=== PATIENT | female | born 1995 ===

== ENCOUNTER 2016-08-29 14:22 | Emergency (ER) | payer MEDICAID ==
[2016-08-29 14:22] VITALS: BMI 21.5
[2016-08-29 14:38] VITALS: BP 117/85; PULSE 95; RESP 18; TEMP 97.9; O2SAT 99
[2016-08-29 15:10] LABS: HCG,QUALITATIVE URINE NEGATIVE (NEGATIVE)
[2016-08-29 15:24] LABS: SQUAMOUS EPITHIAL 4 /hpf (0-5); URINE BILIRUBIN NEGATIVE (NEGATIVE); URINE BLOOD 3+ (NEGATIVE); URINE CLARITY Hazy (Clear); URINE COLOR Yellow (YELLOW); URINE GLUCOSE (UA) NORMAL (Normal); URINE LEUKOCYTE ESTERASE TRACE Leu/uL (Negative); URINE NITRATE NEGATIVE (NEGATIVE); URINE PROTEIN 2+ mg/dL (NEGATIVE)
--- NOTE | 2016-08-29 15:40 | C.PDOC ---
History Of Present Illness 21 y/o female presents to the ED with complaints of headache and lower abdominal cramping. LMP lasted 12 days which isn't typical for her, and then had another 3 days of light bleeding afterward. Pt is sexually active, doesn't use protection. Pt also reports breast discomfort and swelling, nausea and vomiting with eating. History of with miscarriage at 8 weeks. Denies fever, chills, diarrhea, dysuria or any other complaints. Time Seen by Provider: 08/29/16 14:43 Chief Complaint (Nursing): Female Genitourinary History Per: Patient History/Exam Limitations: no limitations Onset/Duration Of Symptoms: Days Current Symptoms Are (Timing): Still Present Severity: Moderate Recent travel outside of the [place]: No Past Medical History Reviewed: Historical Data, Nursing Documentation, Vital Signs Vital Signs: Last Vital Signs Temp 97.9 F 08/29/16 14:35 Pulse 95 H 08/29/16 14:35 Resp 18 08/29/16 14:35 BP 117/85 08/29/16 14:35 Pulse Ox 99 08/29/16 15:42 Surgical History: Appendectomy Family History: States: Unknown Family Hx - Social History Hx Alcohol Use: Yes Hx Substance Use: No - Immunization History Hx Tetanus Toxoid Vaccination: No Hx Influenza Vaccination: No Hx Pneumococcal Vaccination: No Review Of Systems Except As Marked, All Systems Reviewed And Found Negative. Constitutional: Positive for: Other (breast discomfort and swelling). Negative for: Fever, Chills Gastrointestinal: Positive for: Nausea, Vomiting, Abdominal Pain. Negative for : Diarrhea Genitourinary: Negative for: Dysuria Physical Exam - Physical Exam Appears: Well, Non-toxic, No Acute Distress, Other (conversational) Skin: Warm (afebrile), Dry, No Rash Head: Atraumatic, Normacephalic Ear(s): Bilateral: Normal Nose: Normal Oral Mucosa: Moist Throat: Normal, No Erythema Neck: Normal, Normal ROM, Supple Chest: Symmetrical Cardiovascular: Rhythm Regular, No Murmur Respiratory: Normal Breath Sounds, No Rales, No Rhonchi, No Wheezing Gastrointestinal/Abdominal: Normal Exam, Soft, No Tenderness Extremity: Bilateral: Atraumatic Neurological/Psych: Oriented x3, Normal Speech, Normal Cognition ED Course And Treatment O2 Sat by Pulse Oximetry: 99 (room air) Pulse Ox Interpretation: Normal Progress Note: Urine negative for . Disposition Counseled Patient/Family Regarding: Need For Followup, Rx Given - Disposition Referrals: [facility] at [facility] [Outside] Disposition: HOME/ ROUTINE Disposition Time: 15:37 Condition: STABLE Additional Instructions: Siga con willson doctor o la clinica. [place] Motrin para el dolor de jay. Regrese a la yaneth de emergencia con cualquier otro problema. Prescriptions: Ibuprofen [Motrin] 1 tab PO TID PRN #30 tab PRN Reason: Pain Instructions: Premenstrual Syndrome (ED) Forms: Gen Discharge Inst Hungarian - POA Present On Arrival: None - Clinical Impression Clinical Impression: PMS (premenstrual syndrome) - Scribe Statement The provider has reviewed the documentation as recorded by the Scribsolis Vance Provider Attestation: All medical record entries made by the Scribe were at my direction and personally dictated by me. I have reviewed the chart and agree that the record accurately reflects my personal performance of the history, physical exam, medical decision making, and the department course for this patient. I have also personally directed, reviewed, and agree with the discharge instructions and disposition.
== END 2016-08-29 15:59 | disposition home or self-care (01) ==
LOC: C.ER 14:22
DX: N94.3 Premenstrual tension syndrome (principal)

== ENCOUNTER 2016-08-30 12:21 | Emergency (ER) | payer MEDICAID ==
[2016-08-30 12:26] VITALS: BMI 21.9
[2016-08-30 12:27] VITALS: RESP 20
--- NOTE | 2016-08-30 12:44 | C.PDOC ---
History Of Present Illness 21 year old female who presents to the ER with a complaint of a prolonged menstrual period; associated with nausea, vomiting, headache, and abdominal pain. Patient states her menstrual period has be ongoing for 12 days which is abnormal for her; she report it usually last 4-5 days for her. Denies dysuria, pelvic pain, or fever. Time Seen by Provider: 08/30/16 12:42 Chief Complaint (Nursing): Abdominal Pain History Per: Patient History/Exam Limitations: no limitations Onset/Duration Of Symptoms: Days (12) Current Symptoms Are (Timing): Still Present Location Of Pain/Discomfort: Diffuse Radiation Of Pain To:: None Quality Of Discomfort: Unable To Describe Associated Symptoms: Nausea, Vomiting. denies: Fever, Urinary Symptoms Exacerbating Factors: None Alleviating Factors: None Recent travel outside of the [place]: No Abnormal Vaginal Bleeding: Yes Past Medical History Reviewed: Historical Data, Nursing Documentation, Vital Signs Vital Signs: Last Vital Signs Temp 98.3 F 08/30/16 12:26 Pulse 77 08/30/16 12:26 Resp 20 08/30/16 12:26 BP 109/71 08/30/16 12:26 Pulse Ox 99 08/30/16 13:54 - Medical History PMH: No Chronic Diseases Surgical History: Appendectomy Family History: States: Unknown Family Hx - Social History Hx Alcohol Use: Yes Hx Substance Use: No - Immunization History Hx Tetanus Toxoid Vaccination: No Hx Influenza Vaccination: No Hx Pneumococcal Vaccination: No Review Of Systems Constitutional: Negative for: Fever, Chills Cardiovascular: Negative for: Chest Pain Respiratory: Negative for: Cough, Shortness of Breath Gastrointestinal: Positive for: Nausea, Vomiting, Abdominal Pain. Negative for : Diarrhea Genitourinary: Positive for: Vaginal Bleeding. Negative for: Dysuria Neurological: Negative for: Weakness, Numbness Physical Exam - Physical Exam Appears: Non-toxic, No Acute Distress Skin: Normal Color, Warm, Dry Head: Atraumatic, Normacephalic Oral Mucosa: Moist, No Dry Chest: Symmetrical, No Tenderness Cardiovascular: Rhythm Regular, No Murmur Respiratory: Normal Breath Sounds, No Rales, No Rhonchi, No Wheezing Gastrointestinal/Abdominal: Soft, No Tenderness Neurological/Psych: Oriented x3, Normal Speech, Normal Cognition ED Course And Treatment - Laboratory Results Result Diagrams: 08/30/16 14:18 08/30/16 14:18 O2 Sat by Pulse Oximetry: 99 (Room air) Pulse Ox Interpretation: Normal Progress Note: Blood work ordered. Motrin administered. Medical Decision Making Medical Decision Making: pt resting quietly, appears comfortable, no distress, VSS, Hb wnl. follow up and return prec advised Disposition - Disposition Referrals: [facility] at [facility] [Outside] Disposition: HOME/ ROUTINE Disposition Time: 14:41 Condition: GOOD Additional Instructions: Please follow up with your OBGYN doctor. Return to the ER if you go through more than 2 pads an hour for 2 hours, passing out, trouble breathing, chest pain , or for any other concerns. Prescriptions: Ibuprofen [Motrin Tab] 800 mg PO Q8H PRN #10 tab PRN Reason: Pain, Moderate (4-7) Ondansetron ODT [Zofran ODT] 4 mg PO Q4H PRN #10 odt PRN Reason: Nausea/Vomiting Instructions: Dysfunctional Uterine Bleeding (ED) Forms: Gen Discharge Inst Kazakh Print Language: FRISIAN - Clinical Impression Clinical Impression: Dysfunctional uterine bleeding - Scribe Statement The provider has reviewed the documentation as recorded by the Scribsolis Hudson All medical record entries made by the Scribe were at my direction and personally dictated by me. I have reviewed the chart and agree that the record accurately reflects my personal performance of the history, physical exam, medical decision making, and the department course for this patient. I have also personally directed, reviewed, and agree with the discharge instructions and disposition.
[2016-08-30 13:25] LABS: HCG,QUALITATIVE URINE NEGATIVE (NEGATIVE)
[2016-08-30 13:34] LABS: SQUAMOUS EPITHIAL 4 /hpf (0-5); URINE BACTERIA RARE (<OCC); URINE BILIRUBIN NEGATIVE (NEGATIVE); URINE BLOOD 3+ (NEGATIVE); URINE CLARITY Clear (Clear); URINE COLOR Yellow (YELLOW); URINE GLUCOSE (UA) NORMAL (Normal); URINE LEUKOCYTE ESTERASE NEG Leu/uL (Negative); URINE NITRATE NEGATIVE (NEGATIVE); URINE PROTEIN NEGATIVE (NEGATIVE); URINE UROBILINOGEN NORMAL mg/dL (0.2-1.0)
[2016-08-30 14:23] LABS: BASO # 0.1 K/uL (0.0-0.2); EOS % 0.4 % (0.0-4.0); HEMOGLOBIN 13.3 g/dL (11.0-16.0); LYMPH # 1.6 K/uL (1.0-4.3); LYMPH % 21.6 % (20.0-40.0); MEAN CELL VOLUME 93.1 fL (81.0-99.0); MEAN CORPUSCULAR HEMOGLOBIN 31.1 pg (27.0-31.0); MEAN CORPUSCULAR HGB CONC 33.4 g/dL (33.0-37.0); MEAN PLATELET VOLUME 7.7 fL (7.2-11.7); MONO # 0.5 K/uL (0.0-0.8); MONO % 6.9 % (0.0-10.0); NEUT # 5.1 K/uL (1.8-7.0); NEUT % 70.1 % (50.0-75.0); RBC 4.28 Mil/uL (3.80-5.20); RED CELL DISTRIBUTION WIDTH 14.1 % (11.5-14.5); WHITE BLOOD COUNT 7.2 K/uL (4.8-10.8)
[2016-08-30 14:32] LABS: ALBUMIN 4.1 g/dL (3.5-5.0)
[2016-08-30 14:34] LABS: GFR AFRICAN-AMERICAN > 60; GFR NON-AFRICAN AMERICAN > 60
[2016-08-30 14:35] LABS: ALB/GLOB RATIO 1.1 (1.0-2.1); ALT/SGPT 17 U/L (9-52); AST/SGOT 31 U/L (14-36); BLOOD UREA NITROGEN 8 mg/dL (7-17); CALCIUM 8.8 mg/dl (8.6-10.4)
[2016-08-30 15:05] VITALS: BP 118/70; PULSE 83; TEMP 98.7; O2SAT 100
== END 2016-08-30 15:05 | disposition home or self-care (01) ==
LOC: C.ER 12:21
DX: N93.8 Other specified abnormal uterine and vaginal bleeding (principal)

== ENCOUNTER 2016-12-16 13:25 | Emergency (ER) | payer MEDICAID, OTHER ==
[2016-12-16 13:33] VITALS: BMI 21.7
[2016-12-16 13:35] VITALS: BP 113/79; PULSE 100; RESP 18; TEMP 98.5; O2SAT 100
--- NOTE | 2016-12-16 13:49 | C.PDOC ---
History Of Present Illness 21 year old female presents to the ED for evaluation of progressively worsening cough for past 2 weeks. Patient reports that cough now productive with green sputum. She also complains of subjective fever last night. She denies sore throat, ear pain, or chest pain. Time Seen by Provider: 12/16/16 13:40 Chief Complaint (Nursing): Cough, Cold, Congestion History Per: Patient History/Exam Limitations: no limitations Onset/Duration Of Symptoms: Days Current Symptoms Are (Timing): Worse Associated Symptoms: Fever (subjective), Cough, Sputum Ear Symptoms: Bilateral: None Past Medical History Reviewed: Historical Data, Nursing Documentation, Vital Signs Vital Signs: Last Vital Signs Temp 98.5 F 12/16/16 13:32 Pulse 100 H 12/16/16 13:32 Resp 18 12/16/16 13:32 BP 113/79 12/16/16 13:32 Pulse Ox 100 12/16/16 16:22 - Medical History PMH: Denies: Chronic Kidney Disease Surgical History: Appendectomy Family History: States: Unknown Family Hx - Social History Hx Alcohol Use: No Hx Substance Use: No - Immunization History Hx Tetanus Toxoid Vaccination: No Hx Influenza Vaccination: No Hx Pneumococcal Vaccination: No Review Of Systems Constitutional: Positive for: Fever (subjective) ENT: Negative for: Ear Pain, Throat Pain Cardiovascular: Negative for: Chest Pain Respiratory: Positive for: Cough, Sputum Physical Exam - Physical Exam Appears: Non-toxic, No Acute Distress Skin: Normal Color, Warm, Dry Head: Atraumatic, Normacephalic Eye(s): bilateral: Normal Inspection, EOMI Nose: Normal Oral Mucosa: Moist Throat: Normal Neck: Normal ROM Chest: Symmetrical Cardiovascular: Rhythm Regular (Rate Regular ) Respiratory: Normal Breath Sounds, No Rales, No Rhonchi, No Wheezing Extremity: Bilateral: Atraumatic, Normal Color And Temperature, Normal ROM Neurological/Psych: Oriented x3, Normal Speech Gait: Steady ED Course And Treatment O2 Sat by Pulse Oximetry: 100 (room air) Pulse Ox Interpretation: Normal Medical Decision Making Medical Decision Making: Impression: cough and URI Plan: Zithromax Reassess: patient remained afebrile in no distress. lungs clear bilaterally with good air entry. Rx given and advise follow up with PCP. Disposition Counseled Patient/Family Regarding: Diagnosis, Need For Followup, Rx Given - Disposition Referrals: [facility] at [facility] [Outside] Disposition: HOME/ ROUTINE Disposition Time: 13:46 Condition: STABLE Additional Instructions: [place] Tylenol o Motrin alternando cada 4-6 horas para Fever 100.4F o superior. Descansa y lynn muchos lquidos. Puede usar un humidificador de vapor fresco o un vaporizador en la habitacin. Intente lucy el antihistamnico contador ( Claritin, Brianna, Zyrtec), descongestionante o medicamento para la tos segn sea necesario cada 8 horas. Lobito un seguimiento con willson mdico o clnica principal en 1 semana para ranulfo evaluacin ms detallada. Prescriptions: Albuterol HFA [Ventolin HFA 90 mcg/actuation (8 g)] 1 puff IH Q4 #1 puff Azithromycin [Zithromax] 250 mg PO DAILY #4 tab Promethazine DM [Phenergan DM Syrup] 10 ml PO Q8 PRN #300 ml PRN Reason: Cough Instructions: Upper Respiratory Infection (ED) Forms: [employer] (P[place]ua [place]inean) Print Language: SENEGALESE - POA Present On Arrival: None - Clinical Impression Clinical Impression: Upper respiratory infection - Scribe Statement The provider has reviewed the documentation as recorded by the Scribe Gennaro Lerma
== END 2016-12-16 14:15 | disposition home or self-care (01) ==
LOC: C.ER 13:25
DX: J06.9 Acute upper respiratory infection, unspecified (principal)

== ENCOUNTER 2017-04-13 00:08 | Emergency (ER) | payer MEDICAID, OTHER ==
[2017-04-13 00:08] VITALS: BMI 21.7
[2017-04-13 00:19] VITALS: O2SAT 98
--- NOTE | 2017-04-13 00:46 | C.PDOC ---
History Of Present Illness The patient presents to the ED for evaluation of abdominal pain, nausea and vomiting which began after she ate a sandwich earlier today. Patient reports decreased PO intake. She states her LMP was on 03/14. Patient denies fever, chills, and diarrhea. Time Seen by Provider: 04/13/17 00:45 Chief Complaint (Nursing): Abdominal Pain History Per: Patient History/Exam Limitations: no limitations Onset/Duration Of Symptoms: Hrs Current Symptoms Are (Timing): Still Present Context: Food Severity: Mild Pain Scale Rating Of: 2 Location Of Pain/Discomfort: Epigastric (mid ) Radiation Of Pain To:: None Quality Of Discomfort: "Pain" Associated Symptoms: Nausea, Vomiting. denies: Fever, Chills, Diarrhea Exacerbating Factors: None Alleviating Factors: None Last Bowel Movement: Today Recent travel outside of the [place]: No Additional History Per: Patient Abnormal Vaginal Bleeding: No Past Medical History Reviewed: Historical Data, Nursing Documentation, Vital Signs Vital Signs: Last Vital Signs Temp 99.4 F 04/13/17 00:16 Pulse 101 H 04/13/17 00:16 Resp 16 04/13/17 00:16 BP 117/81 04/13/17 00:16 Pulse Ox 98 04/13/17 01:46 - Medical History PMH: No Chronic Diseases Denies: Chronic Kidney Disease Surgical History: Appendectomy Family History: States: Unknown Family Hx - Social History Hx Alcohol Use: No Hx Substance Use: No - Immunization History Hx Tetanus Toxoid Vaccination: No Hx Influenza Vaccination: No Hx Pneumococcal Vaccination: No Review Of Systems Constitutional: Negative for: Fever, Chills Cardiovascular: Negative for: Chest Pain, Palpitations Respiratory: Negative for: Cough, Shortness of Breath Gastrointestinal: Positive for: Nausea, Vomiting, Abdominal Pain (mid- epigastric ). Negative for: Diarrhea Genitourinary: Negative for: Dysuria, Frequency, Hematuria Skin: Negative for: Rash, Lesions, Jaundice, Bruising Physical Exam - Physical Exam Appears: Non-toxic, No Acute Distress Skin: Warm, Dry Head: Normacephalic Eye(s): bilateral: Normal Inspection Oral Mucosa: Moist Neck: Supple Chest: Symmetrical, No Deformity, No Tenderness Cardiovascular: Rhythm Regular, No Murmur Respiratory: No Rales, No Rhonchi, No Wheezing Gastrointestinal/Abdominal: Soft, Tenderness (mild, mid-epigastric ), No Guarding, No Rebound Extremity: Normal ROM, Capillary Refill (less than 2 seconds ) Neurological/Psych: Oriented x3 Gait: Steady ED Course And Treatment - Laboratory Results Result Diagrams: 04/13/17 02:51 04/13/17 02:51 O2 Sat by Pulse Oximetry: 98 (on RA ) Pulse Ox Interpretation: Normal Progress Note: Urinalysis ordered and reviewed. Reevaluation Time: 03:41 Reassessment Condition: Improved Disposition Counseled Patient/Family Regarding: Studies Performed, Diagnosis, Need For Followup, Rx Given - Disposition Referrals: [facility] [Outside] Disposition: HOME/ ROUTINE Disposition Time: 00:46 Condition: FAIR Prescriptions: Ondansetron ODT [Zofran ODT] 1 odt PO BID PRN #6 odt PRN Reason: Nausea/Vomiting Instructions: Abdominal Pain (ED), Acute Nausea and Vomiting (ED) Forms: [employer] (Namibian) Print Language: AZERI - Clinical Impression Clinical Impression: Abdominal pain, Nausea - Scribe Statement The provider has reviewed the documentation as recorded by the Scribe (Kinza Walton) Provider Attestation: All medical record entries made by the Scribe were at my direction and personally dictated by me. I have reviewed the chart and agree that the record accurately reflects my personal performance of the history, physical exam, medical decision making, and the department course for this patient. I have also personally directed, reviewed, and agree with the discharge instructions and disposition.
[2017-04-13 02:02] LABS: SQUAMOUS EPITHIAL 3 /hpf (0-5); URINE BILIRUBIN NEGATIVE (NEGATIVE); URINE CLARITY Hazy (Clear); URINE COLOR Yellow (YELLOW); URINE GLUCOSE (UA) NORMAL (Normal); URINE LEUKOCYTE ESTERASE NEG Leu/uL (Negative); URINE NITRATE NEGATIVE (NEGATIVE); URINE PROTEIN 1+ mg/dL (NEGATIVE); URINE UROBILINOGEN NORMAL mg/dL (0.2-1.0)
[2017-04-13 02:12] LABS: URINE BLOOD NEGATIVE (NEGATIVE)
[2017-04-13 02:20] LABS: HCG,QUALITATIVE URINE NEGATIVE (NEGATIVE)
[2017-04-13] MEDS ORDERED: Sodium Chloride 0.9% 1,000 ML IV ONE (02:27)
[2017-04-13 02:55] LABS: BASO % 0.2 % (0.0-2.0); EOS # 0.1 K/uL (0.0-0.7); EOS % 0.5 % (0.0-4.0); HEMOGLOBIN 15.3 g/dL (11.0-16.0); LYMPH # 0.9 K/uL (1.0-4.3); LYMPH % 7.5 % (20.0-40.0); MEAN CELL VOLUME 94.4 fL (81.0-99.0); MEAN CORPUSCULAR HEMOGLOBIN 32.6 pg (27.0-31.0); MEAN CORPUSCULAR HGB CONC 34.6 g/dL (33.0-37.0); MEAN PLATELET VOLUME 7.9 fL (7.2-11.7); MONO # 0.9 K/uL (0.0-0.8); NEUT # 10.5 K/uL (1.8-7.0); NEUT % 84.8 % (50.0-75.0); PLATELET COUNT 290 K/uL (130-400); RBC 4.68 Mil/uL (3.80-5.20); RED CELL DISTRIBUTION WIDTH 12.9 % (11.5-14.5); WHITE BLOOD COUNT 12.4 K/uL (4.8-10.8)
[2017-04-13 03:07] LABS: ALB/GLOB RATIO 1.3 (1.0-2.1); ALBUMIN 4.5 g/dL (3.5-5.0); ALT/SGPT 24 U/L (9-52); AST/SGOT 33 U/L (14-36); BLOOD UREA NITROGEN 10 mg/dL (7-17); CALCIUM 8.9 mg/dl (8.6-10.4); GFR AFRICAN-AMERICAN > 60; GFR NON-AFRICAN AMERICAN > 60; LIPASE 265 U/L (23-300)
[2017-04-13 03:33] LABS: BANDS 1 % (0-2); LYMPHOCYTE 8 % (20-40); MONOCYTE 8 % (0-10); NEUTROPHIL 83 % (50-75); PLATELET ESTIMATE NORMAL (NORMAL); TOTAL CELLS COUNTED 100
[2017-04-13 04:15] VITALS: BP 110/72; PULSE 92; RESP 20; TEMP 99
== END 2017-04-13 04:13 | disposition home or self-care (01) ==
LOC: C.ER 00:08
DX: R10.13 Epigastric pain (principal); R11.0 Nausea
CPT/HCPCS: 80053; 81001; 83690; 84703; 85025; 96374; 96375; 99283; J2405; J7040

== ENCOUNTER 2017-12-16 18:34 | Emergency (ER) | payer SELFPAY ==
[2017-12-16 18:35] VITALS: BMI 21.7
--- NOTE | 2017-12-16 19:13 | C.PDOC ---
History Of Present Illness presents to the ED complaining of abdominal pain for three days. She also reports associated nausea and vomiting for three days. The patients states her LMP was November 05. She admits there is a possibility she may be . Time Seen by Provider: 12/16/17 19:12 Chief Complaint (Nursing): GI Problem History Per: Patient History/Exam Limitations: no limitations Onset/Duration Of Symptoms: Days Current Symptoms Are (Timing): Still Present Severity: Moderate Pain Scale Rating Of: 4 Quality Of Discomfort: "Pain" Associated Symptoms: Nausea, Vomiting Alleviating Factors: None Recent travel outside of the [place]: No Past Medical History Reviewed: Historical Data, Nursing Documentation, Vital Signs Vital Signs: Last Vital Signs Temp 99.3 F 12/16/17 18:39 Pulse 80 12/16/17 18:39 Resp 19 12/16/17 18:39 BP 107/62 12/16/17 18:39 Pulse Ox 99 12/16/17 18:39 - Medical History PMH: Denies: Chronic Kidney Disease Surgical History: Appendectomy Family History: States: Unknown Family Hx - Social History Hx Alcohol Use: No Hx Substance Use: No - Immunization History Hx Tetanus Toxoid Vaccination: No Hx Influenza Vaccination: No Hx Pneumococcal Vaccination: No Review Of Systems Gastrointestinal: Positive for: Nausea, Vomiting, Abdominal Pain Physical Exam - Physical Exam Appears: Non-toxic, No Acute Distress Skin: Warm, Dry Head: Normacephalic Eye(s): bilateral: PERRL, EOMI Oral Mucosa: Moist Neck: Trachea Midline, Supple Chest: Symmetrical Cardiovascular: Rhythm Regular Respiratory: No Rales, No Rhonchi, No Wheezing Gastrointestinal/Abdominal: Soft, Tenderness (mild epigastric tenderness), No Distention, No Guarding, No Rebound Pulses: Left Dorsalis Pedis: Normal, Right Dorsalis Pedis: Normal Neurological/Psych: Oriented x3 ED Course And Treatment - Laboratory Results Result Diagrams: 12/16/17 19:27 12/16/17 19:27 O2 Sat by Pulse Oximetry: 99 (RA) Pulse Ox Interpretation: Normal Progress Note: test resulted positive. Reevaluation Time: 01:23 Reassessment Condition: Improved Disposition Counseled Patient/Family Regarding: Studies Performed, Diagnosis, Need For Followup - Disposition Referrals: [facility] at [facility] [Outside] [facility] [Outside] Disposition: HOME/ ROUTINE Disposition Time: 19:13 Condition: FAIR Additional Instructions: Por favor regrese en 5-7 akins para repetir los niveles de HCG Prescriptions: Metoclopramide [Reglan] 1 tab PO TID PRN #25 tab PRN Reason: Nausea/Vomiting Instructions: - The Second Month Forms: [employer] ([place]ay[place] Islander) Print Language: IRISH - Clinical Impression Clinical Impression: , Nausea - Scribe Statement The provider has reviewed the documentation as recorded by the Scribe (Ethel Mosley) Provider Attestation: All medical record entries made by the Scribe were at my direction and pers onally dictated by me. I have reviewed the chart and agree that the record accurately reflects my personal performance of the history, physical exam, medical decision making, and the department course for this patient. I have also personally directed, reviewed, and agree with the discharge instructions and disposition.
[2017-12-16 19:30] LABS: BASO # 0.1 K/uL (0.0-0.2); BASO % 0.6 % (0.0-2.0); EOS % 0.1 % (0.0-4.0); HEMOGLOBIN 14.2 g/dL (11.0-16.0); LYMPH # 0.5 K/uL (1.0-4.3); LYMPH % 4.8 % (20.0-40.0); MEAN CORPUSCULAR HGB CONC 34.4 g/dL (33.0-37.0); MEAN PLATELET VOLUME 7.8 fL (7.2-11.7); MONO # 0.5 K/uL (0.0-0.8); MONO % 4.9 % (0.0-10.0); NEUT # 9.4 K/uL (1.8-7.0); NEUT % 89.6 % (50.0-75.0); NRBC % 0.1 % (0.0-2.0); PLATELET COUNT 335 K/uL (130-400); RBC 4.45 Mil/uL (3.80-5.20); RED CELL DISTRIBUTION WIDTH 12.2 % (11.5-14.5); WHITE BLOOD COUNT 10.5 K/uL (4.8-10.8)
[2017-12-16 19:35] LABS: SQUAMOUS EPITHIAL 13 /hpf (0-5); URINE BACTERIA RARE (<OCC); URINE BILIRUBIN NEGATIVE (NEGATIVE); URINE BLOOD NEGATIVE (NEGATIVE); URINE CLARITY Hazy (Clear); URINE COLOR Yellow (YELLOW); URINE GLUCOSE (UA) NORMAL (Normal); URINE LEUKOCYTE ESTERASE NEG Leu/uL (Negative); URINE PROTEIN NEGATIVE (NEGATIVE); URINE UROBILINOGEN NORMAL mg/dL (0.2-1.0)
[2017-12-16 19:41] LABS: INR 1.1; PROTHROMBIN TIME 12.5 SECONDS (9.7-12.2)
[2017-12-16 19:51] LABS: ALB/GLOB RATIO 1.5 (1.0-2.1); ALBUMIN 4.6 g/dL (3.5-5.0); ALT/SGPT 20 U/L (9-52); AST/SGOT 26 U/L (14-36); BLOOD UREA NITROGEN 4 mg/dL (7-17); CALCIUM 9.8 mg/dl (8.6-10.4); GFR NON-AFRICAN AMERICAN > 60
[2017-12-16 20:28] LABS: BANDS 8 % (0-2); BASOPHIL 1 % (0-2); EOSINOPHIL 1 % (0-4); LARGE PLATELETS PRESENT; LYMPHOCYTE 4 % (20-40); MONOCYTE 5 % (0-10); NEUTROPHIL 81 % (50-75); PLATELET ESTIMATE NORMAL (NORMAL); TOTAL CELLS COUNTED 100
[2017-12-16 21:01] VITALS: RESP 16; TEMP 98.1
[2017-12-17 01:33] VITALS: BP 99/65; PULSE 66; O2SAT 100
--- NOTE | 2017-12-17 09:19 | US ---
Pelvic ultrasound HISTORY: Pelvic pain. COMPARISON: None available. TECHNIQUE: Real-time sonography was performed through the pelvis utilizing transabdominal and transvaginal techniques. [place]: [place] [address]. LMP of 11/05/2017. Estimated gestational age by LMP of 5 weeks and 6 days. Uterus: 8.9 x 4.9 x 6.3 centimeters. Heterogeneous echotexture. Anteverted. Cervix measures 3.2 centimeters. Question bicornuate uterus. Right horn of the endometrium measures up to 1.4 centimeters, prominent. Suggestion of an intrauterine gestational sac within the left horn of the epididymis measuring 1.9 centimeters corresponding to a gestational age of 6 weeks and 2 days. Yolk sac identified measuring 2.4 millimeters. No discrete pole identified. Free fluid noted within the pelvic cul-de-sac. Right ovary: 2.5 x 1.0 x 2.6 centimeters. Normal flow. Left ovary: 2.3 x 2.7 x 2.3 centimeters. Normal flow. Heterogeneous cyst measuring 1.6 x 1.2 x 1.7 centimeters. Impression: 1. 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 Yolk sac identified. No discrete pole or heart rate identified at this juncture. 2. Free fluid in the pelvic cul-de-sac. 3. Suggestion of a left ovarian corpus luteal cyst measuring up to 1.7 centimeters. Limited 1st trimester ultrasound for viability purposes only. Continued interval followup with serial ultrasound, serial HCG levels, and gynecological consultation would be helpful if clinically indicated. A preliminary report was generated at 1:15 a.m. on 12/17/[address] Pascale Maher from [email or web address].
== END 2017-12-17 01:33 | disposition home or self-care (01) ==
LOC: C.ER 18:34
DX: O26.891 Other specified pregnancy related conditions, first trimester (principal); O21.9 Vomiting of pregnancy, unspecified; Z3A.01 Less than 8 weeks gestation of pregnancy
CPT/HCPCS: 76805; 76817; 80053; 81001; 84702; 85025; 85610; 85730; 86850; 86900; 96374; 99285; J2405

== ENCOUNTER 2018-02-27 13:22 | Emergency (ER) | payer OTHER ==
[2018-02-27 13:39] VITALS: BMI 24.6
[2018-02-27 13:41] VITALS: RESP 20
[2018-02-27] MEDS ORDERED: Sodium Chloride 0.9% 1,000 ML IV STA (14:59)
[2018-02-27 15:13] LABS: BASO % 0.4 % (0.0-2.0); EOS # 0.1 K/uL (0.0-0.7); EOS % 0.8 % (0.0-4.0); HEMOGLOBIN 11.4 g/dL (11.0-16.0); LYMPH # 1.6 K/uL (1.0-4.3); LYMPH % 18.8 % (20.0-40.0); MEAN CORPUSCULAR HEMOGLOBIN 31.9 pg (27.0-31.0); MEAN PLATELET VOLUME 7.3 fL (7.2-11.7); MONO # 0.8 K/uL (0.0-0.8); MONO % 9.4 % (0.0-10.0); NEUT % 70.6 % (50.0-75.0); NRBC % 0.1 % (0.0-2.0); RBC 3.58 Mil/uL (3.80-5.20); RED CELL DISTRIBUTION WIDTH 13.9 % (11.5-14.5); WHITE BLOOD COUNT 8.5 K/uL (4.8-10.8)
[2018-02-27 15:21] LABS: SQUAMOUS EPITHIAL 22 /hpf (0-5); URINE BILIRUBIN NEGATIVE (NEGATIVE); URINE BLOOD NEGATIVE (NEGATIVE); URINE CALCIUM OXALATE CRYSTALS FEW /hpf (<OCC); URINE CLARITY Hazy (Clear); URINE COLOR Amber (YELLOW); URINE GLUCOSE (UA) NORMAL (Normal); URINE LEUKOCYTE ESTERASE NEG Leu/uL (Negative); URINE PROTEIN NEGATIVE (NEGATIVE); URINE UROBILINOGEN NORMAL mg/dL (0.2-1.0)
[2018-02-27 15:36] LABS: ALB/GLOB RATIO 1.5 (1.0-2.1); ALT/SGPT 22 U/L (9-52); AST/SGOT 30 U/L (14-36); BLOOD UREA NITROGEN 5 mg/dL (7-17); GFR NON-AFRICAN AMERICAN > 60; LIPASE 162 U/L (23-300)
[2018-02-27 15:53] VITALS: BP 107/76; PULSE 97; TEMP 97.4; O2SAT 100
[2018-02-27] MEDS ORDERED: Sodium Chloride 0.9% 1,000 ML ONE (16:07)
--- NOTE | 2018-02-27 16:09 | US ---
Indication: abd pain in , assess cervix Comparison: 1st trimester Ob ultrasound performed 12/16/17 Technique: Real-time ultrasound was performed through the pelvis. Findings: There is a single living fetus in breech presentation. Anterior left placenta. The placenta is not previa. There are no adnexal masses or cysts evident. Cervix length measures approximately 3.9 cm. Measurements and calculations: Fetus has a composite sonographic age of 16 weeks 3 days. This calculation is based on the biparietal diameter, head circumference, abdominal circumference, and femur length. Estimated heart rate 155.5 beats per min. Estimated weight 152.8 g. Impression: Single living fetus with a composite sonographic age of 16 weeks 3 days. Estimated heart rate 155.5 beats per min. Advise an outpatient anomaly screen at 16-18 weeks gestational age.
--- NOTE | 2018-02-27 16:20 | C.PDOC ---
History Of Present Illness 22 y/o female, , presents to the ER complaining of subjective fever, cough, congestion, and body aches which have been present for the past 3 days. Patient states that she is 16 weeks according to her last US. Patient denies having CP,SOB, nausea,vomiting, diarrhea, dysuria, vaginal bleeding, and vaginal discharge. Time Seen by Provider: 02/27/18 14:57 Chief Complaint (Nursing): Abdominal Pain History Per: Patient History/Exam Limitations: no limitations Onset/Duration Of Symptoms: Days Current Symptoms Are (Timing): Still Present Severity: Moderate Past Medical History Reviewed: Historical Data, Nursing Documentation, Vital Signs Vital Signs: Last Vital Signs Temp 97.4 F L 02/27/18 15:52 Pulse 97 H 02/27/18 15:52 Resp 20 02/27/18 15:52 BP 107/76 02/27/18 15:52 Pulse Ox 100 02/27/18 15:52 - Medical History PMH: No Chronic Diseases Denies: Chronic Kidney Disease Surgical History: Appendectomy Family History: States: No Known Family Hx - Social History Hx Alcohol Use: No Hx Substance Use: No - Immunization History Hx Tetanus Toxoid Vaccination: No Hx Influenza Vaccination: No Hx Pneumococcal Vaccination: No Review Of Systems Except As Marked, All Systems Reviewed And Found Negative. Constitutional: Positive for: Fever, Malaise. Negative for: Chills ENT: Positive for: Nose Congestion Cardiovascular: Negative for: Chest Pain Respiratory: Positive for: Cough. Negative for: Shortness of Breath Gastrointestinal: Negative for: Nausea, Vomiting, Diarrhea Genitourinary: Negative for: Dysuria, Frequency, Hematuria, Vaginal Discharge, Vaginal Bleeding Physical Exam - Physical Exam Additional Physical Exam Comments: Constitutional: No acute distress. Head: Normocephalic. Atraumatic. Eyes: PERRL. ENT: Moist mucous membranes. Neck: Supple. Cardiovascular: Regular rate. Radial pulse 2+ bilaterally. Chest: No tenderness. Respiratory: Clear to auscultation bilaterally. GI: Soft. Nontender. Nondistended. Back: No CVA tenderness. Musculoskeletal: No tenderness or swelling of extremities. Skin: No rash. Neurologic: Alert, no focal deficit. ED Course And Treatment - Laboratory Results Result Diagrams: 02/27/18 15:10 02/27/18 15:10 O2 Sat by Pulse Oximetry: 100 (RA) Pulse Ox Interpretation: Normal Medical Decision Making Medical Decision Making: Plan: --Labs --UA --US- OB Preg. --IV Fluids --Toradol IV Impression: Single living fetus with a composite sonographic age of 16 weeks 3 days. Estimated heart rate 155.5 beats per min. Advise an outpatient anomaly screen at 16-18 weeks gestational age. Continue acetaminophen, fluids, f/u PMD, return to ED for worsening pain, fever, vomiting, dyspnea, bleeding, or any other problem. Disposition - Disposition Disposition: HOME/ ROUTINE Disposition Time: 16:33 Condition: STABLE Prescriptions: Acetaminophen [Tylenol 325mg tab] 2 tab PO Q4H #30 tab Instructions: Viral Upper Respiratory Infection, Adult (DC) Forms: [employer] (Luxembourgish) - Clinical Impression Clinical Impression: Upper respiratory infection - Scribe Statement The provider has reviewed the documentation as recorded by the Scribe Rocio Weaver Provider Attestation: All medical record entries made by the Scribe were at my direction and personally dictated by me. I have reviewed the chart and agree that the record accurately reflects my personal performance of the history, physical exam, medical decision making, and the department course for this patient. I have also personally directed, reviewed, and agree with the discharge instructions and disposition.
== END 2018-02-27 16:47 | disposition home or self-care (01) ==
LOC: C.ER 13:22
DX: O26.892 Other specified pregnancy related conditions, second trimester (principal); J06.9 Acute upper respiratory infection, unspecified; Z3A.16 16 weeks gestation of pregnancy
CPT/HCPCS: 76815; 80053; 81001; 83690; 84702; 85025; 86850; 86900; 87086; 87804; 96360; 99285; J7030